=== PATIENT | female | born 1985 | race Caucasian/White ===

== ENCOUNTER → 2020-08-24 | Outpatient (CLI) | payer OTHER | END | disposition home or self-care (01) | LOC: LAB SHORT 13:00 → LAB 13:00 | DX: N20.0 Calculus of kidney (principal); R10.9 Unspecified abdominal pain | CPT/HCPCS: 87077; 87086; 87186 ==

== ENCOUNTER 2022-06-15 20:16 | Emergency (ER) | payer OTHER ==
[~2022-06-15] VITALS: Ht 172.7 cm; Wt 85.7 kg
== END 2022-06-15 22:45 | disposition home or self-care (01) ==
LOC: ER 20:16
DX: S61.314A Laceration without foreign body of right ring finger with damage to nail, initial encounter (principal); W31.89XA Contact with other specified machinery, initial encounter
CPT/HCPCS: 90714

== ENCOUNTER → 2022-06-19 | Outpatient (CLI) | payer OTHER | LOC: LAB SHORT 11:30 → LAB 11:30 | DX: R30.0 Dysuria (principal) | CPT/HCPCS: 87086 ==

== ENCOUNTER → 2023-02-12 | Outpatient (CLI) | payer OTHER | LOC: LAB SHORT 13:35 → LAB 13:35 | DX: R30.0 Dysuria (principal) | CPT/HCPCS: 87077; 87086; 87186 ==

== ENCOUNTER → 2023-08-06 | Outpatient (CLI) | payer OTHER ==
[2023-08-21 07:08] LABS: HPV GENOTYPE 16 BY PCR Negative; HPV GENOTYPE 18 BY PCR Negative; HPV SOURCE Cervical; HPV, OTHER HIGH RISK BY PCR Negative
== END ==
LOC: LAB SHORT 16:55 → LAB 16:55
PROVIDERS: Student in an Organized Health Care Education/Training Program
DX: Z12.4 Encounter for screening for malignant neoplasm of cervix (principal)
CPT/HCPCS: 87624; 88142

== ENCOUNTER → 2024-02-12 | Outpatient (CLI) | payer OTHER ==
[2024-02-12 13:15] LABS: Source, Urine Voided
[2024-02-12 14:43] LABS: Appearance, Urine Hazy (Clear); Bilirubin, Urine Neg (Neg); Blood, Urine 1+ (Neg); Color, Urine Yellow (P-Yellow); Glucose Qualitative, Urine Neg (Neg); Ketones, Urine Neg (Neg); Leukocyte Esterase, Urine 3+ (Neg); Nitrite, Urine Neg (Neg); Protein, Urine 1+ (Neg); Urobilinogen, Urine NORM (Normal)
[2024-02-12 15:01] LABS: Bacteria Few /hpf; Squamous Epithelial Cells Few /hpf (Few); White Blood Cells, Urine 25-50 /hpf (0-5)
== END | disposition home or self-care (01) ==
LOC: LAB 13:04 → LAB SHORT 13:04
PROVIDERS: Obstetrics & Gynecology
DX: R30.0 Dysuria (principal)
CPT/HCPCS: 81001; 87077; 87086; 87186

== ENCOUNTER → 2024-04-06 | Outpatient (CLI) | payer OTHER | END | disposition home or self-care (01) | LOC: LAB 11:55 → LAB SHORT 11:55 | DX: O09.512 Supervision of elderly primigravida, second trimester (principal) | CPT/HCPCS: 87081; 87150 ==

== ENCOUNTER 2024-05-05 06:58 | Inpatient (IN) | payer OTHER ==
[~2024-05-05] VITALS: Ht 172.7 cm; Wt 117.7 kg
[2024-05-05] VITALS (36 sets, daily range): BP systolic 105–196; BP diastolic 47–89
[2024-05-05] MEDS ORDERED: Lactated Ringer's 1,000 ML IV SCH ×2 (07:35→16:30)
[2024-05-05] MEDS ORDERED: ePHEDrine Sulfate 50 MG/ML 1ML Injection XX PRN (07:35)
[2024-05-05] MEDS ORDERED: OXYTOCIN/RINGER'S LACTATE 500 ML IV SCH ×3 (07:35→19:05)
[2024-05-05] MEDS ORDERED: FentaNYL 2mcg/ml-Bup 0.1% Epd 250 ML EPI PRN (07:35)
[2024-05-05] MEDS ORDERED: Acetaminophen 500 MG Tab PO PRN (07:40)
[2024-05-05] MEDS ORDERED: Carboprost Tromethamine 250 MCG/ML 1ML Amp IM PRN ×2 (07:40→18:55)
[2024-05-05] MEDS ORDERED: Calcium Carbonate 500 MG Tab Chew PO PRN (07:40)
[2024-05-05] MEDS ORDERED: Ondansetron HCl 2 MG / ML 2ML Vial IV PRN ×4 (07:40→19:00)
[2024-05-05] MEDS ORDERED: Misoprostol 200 MCG Tab PR PRN ×2 (07:40→19:00)
[2024-05-05] MEDS ORDERED: OXYTOCIN/RINGER'S LACTATE 500 ML IV PRN (07:40)
[2024-05-05] MEDS ORDERED: Oxytocin 10 Unit / ML Vial IM PRN (07:40)
[2024-05-05] MEDS ORDERED: Misoprostol 200 MCG Tab BC PRN (07:40)
[2024-05-05] MEDS ORDERED: Methylergonovine Maleate 0.2MG / ML 1ML Amp IM PRN ×2 (07:40→18:55)
[2024-05-05] MEDS ORDERED: Lactated Ringer's 1,000 ML IV PRN ×2 (07:40)
[2024-05-05] MEDS ORDERED: Tranexamic Acid 100 ML IV SCH ×2 (07:50→19:10)
[2024-05-05] MEDS ORDERED: Penicillin G Potassium 5,000,000 UNITS in NS 250 ML IV ONE (07:50)
[2024-05-05 08:21] LABS: BASOPHILS ABSOLUTE AUTO 0.03 K/mm3 (0.00-0.23); BASOPHILS PERCENT AUTO 0 % (0-2); EOSINOPHILS ABSOLUTE AUTO 0.09 K/mm3 (0.00-0.68); EOSINOPHILS PERCENT AUTO 1 % (0-6); Hematocrit 36.6 % (33.0-51.0); Hemoglobin 12.4 g/dL (11.5-16.0); IMMATURE GRAN ABSOLUTE AUTO 0.06 K/mm3 (0.00-0.10); IMMATURE GRAN PERCENT AUTO 1 % (0-1); LYMPHOCYTES ABSOLUTE AUTO 1.68 K/mm3 (0.84-5.20); LYMPHOCYTES PERCENT AUTO 18 % (21-46); MONOCYTES ABSOLUTE AUTO 0.92 K/mm3 (0.16-1.47); MONOCYTES PERCENT AUTO 10 % (4-13); Mean Corpuscular HGB 30.3 pg (26.0-34.0); Mean Corpuscular HGB Conc 33.9 g/dL (31.5-36.5); Mean Corpuscular Volume 90 fL (80-100); NEUTROPHILS ABSOLUTE AUTO 6.44 K/mm3 (1.96-9.15); NEUTROPHILS PERCENT AUTO 70 % (41-73); Platelet Count 223 K/mm3 (150-400); RDW Coefficient Variation 13.7 % (11.7-14.2); RDW Standard Deviation 44.5 fL (35.1-46.3); Red Blood Cell Count 4.09 M/mm3 (3.80-5.20); White Blood Cell Count 9.22 K/mm3 (4.00-11.30)
[2024-05-05] MEDS ORDERED: OMEP20ER PO (08:47)
[2024-05-05] MEDS ORDERED: CALCIUM 500-VI1 EAC6 PO (08:48)
[2024-05-05] MEDS ORDERED: PRENATAL TABLE1 EAC2 PO (08:48)
[2024-05-05] MEDS ORDERED: ACETAMINOPHEN500 MG PO (08:49)
[2024-05-05] MEDS ORDERED: Penicillin G Potassium 2,500,000 UNITS in Dextrose 5% 100 ML IV SCH (12:00)
[2024-05-05] MEDS ORDERED: Insulin Human Lispro 100 Units/ML 3ML Syringe SC SCH (12:30)
[2024-05-05] MEDS ORDERED: DiphenhydrAMINE HCl 50 MG/ML 1ML Vial IV PRN (14:15)
[2024-05-05] MEDS ORDERED: ePHEDrine Sulfate 50 MG/ML 1ML Injection IV PRN (14:15)
[2024-05-05] MEDS ORDERED: Naloxone HCl 0.4MG / ML 1ML Vial IV PRN (14:20)
[2024-05-05] MEDS ORDERED: CeFAZolin Sodium 2,000 MG in NS 100 ML IV SCH (16:30)
[2024-05-05] MEDS ORDERED: Metoclopramide HCl 5MG / ML 2ML Vial ONE (16:52)
[2024-05-05] MEDS ORDERED: Citric Acid/Sodium Citrate 30 ML BTL ONE (16:52)
[2024-05-05] MEDS ORDERED: Citric Acid/Sodium Citrate 30 ML BTL PO ONE (16:55)
[2024-05-05] MEDS ORDERED: Metoclopramide HCl 5MG / ML 2ML Vial IV ONE (16:55)
[2024-05-05] MEDS ORDERED: ePHEDrine Sulfate 50 MG/ML 1ML Injection ONE (17:13)
[2024-05-05] MEDS ORDERED: Oxytocin 10 Unit / ML Vial ONE ×2 (17:13)
[2024-05-05] MEDS ORDERED: Azithromycin 500 MG in NS 250 ML IV SCH ×2 (17:20→17:30)
[2024-05-05] MEDS ORDERED: Bupivacaine 0.5% HCl 5 MG/ML 30MLVIAL ONE (17:21)
--- NOTE | 2024-05-05 17:38 | NUR ---
05/05/24 1737 Leonie Elliott S P C/S OF BABY GIRL AT 1727. AP 9/8. WT 7-6. CORD BLOOD COLLECTED AND SENT WITH URVASHI BAILEY. CORD GASES COLLECTED AND SENT WITH RT ROSA ISELA.
[2024-05-05 17:44] LABS: PCO2 Cord - Arterial 57.8 mmHg (40-50); PO2 Cord - Arterial < 14.0 mmHg (16-20); pH Cord - Arterial 7.29 (7.28-7.35)
[2024-05-05 17:46] LABS: PCO2 Cord - Venous 48.8 mmHg (40-50); PO2 Cord - Venous 17.4 mmHg (28-32); pH Umbilical Cord - Venous 7.35 (7.26-7.35)
[2024-05-05] MEDS ORDERED: FentaNYL Citrate 50 MCG/ML 2 ML Injection IV PRN ×2 (17:55)
[2024-05-05] MEDS ORDERED: HYDROmorphone HCl/Pf 1MG SYR IV PRN ×2 (17:55→19:00)
[2024-05-05] MEDS ORDERED: Morphine Sulfate 4 MG/1 ML Injection IV PRN (18:00)
[2024-05-05] MEDS ORDERED: DiphenhydrAMINE HCL 25 MG Cap PO PRN (18:50)
[2024-05-05] MEDS ORDERED: Magnesium Hydroxide Conc 10 ML UDC PO PRN (18:55)
[2024-05-05] MEDS ORDERED: Simethicone 80 MG Chew PO PRN (18:55)
[2024-05-05] MEDS ORDERED: Promethazine HCl 25 MG Tab PO PRN (19:00)
[2024-05-05] MEDS ORDERED: Lanolin Cream TOP PRN (19:00)
[2024-05-05] MEDS ORDERED: Ketorolac Tromethamine 30mg Vial IV SCH (19:00)
[2024-05-05] MEDS ORDERED: OxyCODONE HCL 5 MG TAB PO PRN ×2 (19:05)
[2024-05-06] MEDS ORDERED: Acetaminophen 500 MG Tab PO SCH
[2024-05-06] MEDS ORDERED: Ibuprofen 400 MG Tab PO SCH
[2024-05-06 03:42] VITALS: BP 113/62
[2024-05-06 07:34] VITALS: BP 128/64
[2024-05-06] MEDS ORDERED: Polyethylene Glycol 3350 17 gm PO SCH (09:00)
[2024-05-06] MEDS ORDERED: Prenatal Vit/FE Fumarate/FA 1 Tab PO SCH (09:00)
[2024-05-06 09:12] LABS: BASOPHILS ABSOLUTE AUTO 0.03 K/mm3 (0.00-0.23); BASOPHILS PERCENT AUTO 0 % (0-2); EOSINOPHILS ABSOLUTE AUTO 0.08 K/mm3 (0.00-0.68); EOSINOPHILS PERCENT AUTO 1 % (0-6); Hematocrit 32.9 % (33.0-51.0); Hemoglobin 11.1 g/dL (11.5-16.0); IMMATURE GRAN ABSOLUTE AUTO 0.07 K/mm3 (0.00-0.10); IMMATURE GRAN PERCENT AUTO 1 % (0-1); LYMPHOCYTES ABSOLUTE AUTO 1.91 K/mm3 (0.84-5.20); LYMPHOCYTES PERCENT AUTO 16 % (21-46); MONOCYTES ABSOLUTE AUTO 0.94 K/mm3 (0.16-1.47); MONOCYTES PERCENT AUTO 8 % (4-13); Mean Corpuscular HGB 30.2 pg (26.0-34.0); Mean Corpuscular HGB Conc 33.7 g/dL (31.5-36.5); Mean Corpuscular Volume 90 fL (80-100); Mean Platelet Volume 10.6 fL (9.1-12.4); NEUTROPHILS PERCENT AUTO 76 % (41-73); Platelet Count 204 K/mm3 (150-400); RDW Coefficient Variation 13.6 % (11.7-14.2); RDW Standard Deviation 44.8 fL (35.1-46.3); Red Blood Cell Count 3.67 M/mm3 (3.80-5.20); White Blood Cell Count 12.33 K/mm3 (4.00-11.30)
[2024-05-06 12:45] VITALS: BP 116/60
[2024-05-06] MEDS ORDERED: Ketorolac Tromethamine 30mg Vial IV PRN (14:30)
[2024-05-06 15:51] VITALS: BP 128/86
[2024-05-06 20:14] VITALS: BP 124/60
[2024-05-07 00:31] VITALS: BP 121/76
[2024-05-07 02:10] VITALS: BP 113/55
[2024-05-07 05:05] VITALS: BP 115/58
[2024-05-07 07:34] VITALS: BP 132/66
[2024-05-07 14:34] VITALS: BP 136/65
--- NOTE | 2024-05-07 14:59 | NUR ---
agree with above assessment madison adamsc
== END 2024-05-07 14:45 | disposition home or self-care (01) | DRG 788 ==
LOC: OBS 06:58 → BC 07:08 → OBS 07:26 → BC 07:27
PROVIDERS: ADMIT Obstetrics & Gynecology
PROC: 10H07YZ Insertion of Other Device into Products of Conception, Via Natural or Artificial Opening (ICD-10-PCS; 2024-05-05)
PROC: 10D00Z1 Extraction of Products of Conception, Low, Open Approach (ICD-10-PCS; principal; 2024-05-05 20:30)
DX: O24.425 Gestational diabetes mellitus in childbirth, controlled by oral hypoglycemic drugs (principal); Z3A.39 39 weeks gestation of pregnancy; Z37.0 Single live birth; Z98.84 Bariatric surgery status; O99.214 Obesity complicating childbirth; O99.824 Streptococcus B carrier state complicating childbirth; O77.0 Labor and delivery complicated by meconium in amniotic fluid; Z90.89 Acquired absence of other organs; Z90.49 Acquired absence of other specified parts of digestive tract; Z98.890 Other specified postprocedural states; Z91.011 Allergy to milk products; Z91.018 Allergy to other foods; Z79.899 Other long term (current) drug therapy; Z79.84 Long term (current) use of oral hypoglycemic drugs
CPT/HCPCS: 36415; 82803; 82947; 85025; 86850; 86900; 86901; A9270; J0690; J1885; J2540; J2590; J2765; J7050; J7120

== ENCOUNTER → 2024-11-10 | Outpatient (CLI) | payer OTHER ==
[~2024-11-10] MED LIST: ACETAMINOPHEN500 MG PO; CALCIUM 500-VI1 EAC6 PO; OMEP20ER PO; PRENATAL TABLE1 EAC2 PO
[2024-11-10 10:43] LABS: Source, Urine Voided
[2024-11-10 12:42] LABS: Bacteria Many /hpf; Red Blood Cells, Urine 0-2 /hpf (0-2); Squamous Epithelial Cells Many /hpf (Few)
== END ==
LOC: LAB SHORT 08:05 → LAB 08:05
PROVIDERS: Obstetrics & Gynecology
DX: Z34.81 Encounter for supervision of other normal pregnancy, first trimester (principal)
CPT/HCPCS: 81015; 87086

== ENCOUNTER → 2025-02-02 | Outpatient (CLI) | payer OTHER ==
[2025-02-02 20:08] LABS: Bacterial Vaginosis PCR Negative (NEGATIVE); Candida Group, PCR NOT DETECTED (NOT DETECT); Candida glabrata-krusei, PCR NOT DETECTED (NOT DETECT)
== END | disposition home or self-care (01) ==
LOC: LAB SHORT 18:20 → LAB 18:20
PROVIDERS: Obstetrics & Gynecology
DX: N76.0 Acute vaginitis (principal)
CPT/HCPCS: 81515

== ENCOUNTER → 2025-05-23 | Outpatient (CLI) | payer OTHER | LOC: LAB SHORT 13:45 → LAB 13:45 | DX: O09.529 Supervision of elderly multigravida, unspecified trimester (principal) | CPT/HCPCS: 87081; 87150 ==

== ENCOUNTER 2025-06-13 08:27 | Inpatient (IN) | payer OTHER ==
[2025-06-13] VITALS (15 sets, daily range): BP systolic 104–139; BP diastolic 56–87
[~2025-06-13] VITALS: Ht 172.7 cm; Wt 125.0 kg
[2025-06-13] MEDS ORDERED: Metoclopramide HCl 5MG / ML 2ML Vial IV ONE (09:10)
[2025-06-13] MEDS ORDERED: Citric Acid/Sodium Citrate 30 ML BTL PO SCH (09:10)
[2025-06-13] MEDS ORDERED: CeFAZolin Sodium 3,000 MG in NS 100 ML IV SCH (09:10)
[2025-06-13] MEDS ORDERED: Celexa20 MG PO (09:15)
[2025-06-13] MEDS ORDERED: METF500 PO (09:16)
[2025-06-13] MEDS ORDERED: NOVOLIN N100 UNIT/2 (09:17)
[2025-06-13] MEDS ORDERED: OMEP20ER PO (09:18)
[2025-06-13 09:22] LABS: BASOPHILS ABSOLUTE AUTO 0.02 K/mm3 (0.00-0.23); BASOPHILS PERCENT AUTO 0 % (0-2); EOSINOPHILS ABSOLUTE AUTO 0.06 K/mm3 (0.00-0.68); EOSINOPHILS PERCENT AUTO 1 % (0-6); Hematocrit 37.2 % (33.0-51.0); Hemoglobin 12.8 g/dL (11.5-16.0); IMMATURE GRAN ABSOLUTE AUTO 0.06 K/mm3 (0.00-0.10); IMMATURE GRAN PERCENT AUTO 1 % (0-1); LYMPHOCYTES ABSOLUTE AUTO 1.62 K/mm3 (0.84-5.20); LYMPHOCYTES PERCENT AUTO 21 % (21-46); MONOCYTES ABSOLUTE AUTO 0.68 K/mm3 (0.16-1.47); MONOCYTES PERCENT AUTO 9 % (4-13); Mean Corpuscular HGB Conc 34.4 g/dL (31.5-36.5); Mean Corpuscular Volume 90 fL (80-100); NEUTROPHILS ABSOLUTE AUTO 5.42 K/mm3 (1.96-9.15); NEUTROPHILS PERCENT AUTO 69 % (41-73); NRBC ABSOLUTE 0.00 K/mm3 (0.00-0.02); NRBC Auto 0.0 /100 WBC (0.0-0.2); Platelet Count 199 K/mm3 (150-400); RDW Coefficient Variation 15.9 % (11.7-14.2); RDW Standard Deviation 51.8 fL (35.1-46.3)
[2025-06-13] MEDS ORDERED: Ondansetron HCl 2 MG / ML 2ML Vial ONE (10:24)
[2025-06-13] MEDS ORDERED: Phenylephrine HCl 100 MCG/ML-NS 10MLSYR (1MG/10ML) ONE ×2 (10:24→11:28)
[2025-06-13] MEDS ORDERED: Oxytocin 10 Unit / ML Vial ONE (11:20)
[2025-06-13] MEDS ORDERED: HYDROmorphone HCl/Pf 1MG SYR IV PRN ×2 (11:20)
[2025-06-13] MEDS ORDERED: Ondansetron HCl 2 MG / ML 2ML Vial IV PRN ×2 (11:20→18:00)
[2025-06-13] MEDS ORDERED: Albuterol 2.5 MG/3 ML VIAL INH PRN (11:20)
[2025-06-13] MEDS ORDERED: Labetalol HCL 5 MG/ML 4ML Injection (Single Dose) IV PRN (11:20)
[2025-06-13] MEDS ORDERED: FentaNYL Citrate 50 MCG/ML 2 ML Injection IV PRN ×2 (11:25)
[2025-06-13 11:51] LABS: PCO2 Cord - Arterial 54.7 mmHg (40-50); PO2 Cord - Arterial 15.1 mmHg (16-20); pH Cord - Arterial 7.27 (7.28-7.35)
[2025-06-13 11:53] LABS: PCO2 Cord - Venous 41.7 mmHg (40-50); PO2 Cord - Venous 24.0 mmHg (28-32); pH Umbilical Cord - Venous 7.38 (7.26-7.35)
--- NOTE | 2025-06-13 12:21 | NUR ---
06/13/25 1221 HAYDEN BOWEN FHT DOPPLERED DURING MARIN INSERTION IN 140S. LIGHT MEC FLUID VISUALIZED ON UNDERPAD. VIABLE BABY GIRL BORN AT 1133, APGARS 7/9, MEC FLUID, 3 VESSEL CORD. PLACENTA DELIVERED INTACT. CORD GASSES GIVEN TO RITA FINN, RT. CORD BLOOD GIVEN TO REUBEN HOUSER RN.
[2025-06-13] MEDS ORDERED: Ketorolac Tromethamine 30mg Vial ONE (12:23)
[2025-06-13] MEDS ORDERED: Ketorolac Tromethamine 30mg Vial IV PRN (13:25)
[2025-06-13] MEDS ORDERED: Rho(D) Immune Globulin 300 MCG / SYR IM ONE (18:00)
[2025-06-14 06:12] VITALS: BP 128/66
[2025-06-14 06:48] LABS: BASOPHILS ABSOLUTE AUTO 0.04 K/mm3 (0.00-0.23); BASOPHILS PERCENT AUTO 0 % (0-2); EOSINOPHILS ABSOLUTE AUTO 0.07 K/mm3 (0.00-0.68); EOSINOPHILS PERCENT AUTO 1 % (0-6); Hematocrit 34.5 % (33.0-51.0); Hemoglobin 11.4 g/dL (11.5-16.0); IMMATURE GRAN ABSOLUTE AUTO 0.05 K/mm3 (0.00-0.10); IMMATURE GRAN PERCENT AUTO 1 % (0-1); LYMPHOCYTES ABSOLUTE AUTO 1.53 K/mm3 (0.84-5.20); LYMPHOCYTES PERCENT AUTO 15 % (21-46); MONOCYTES ABSOLUTE AUTO 0.74 K/mm3 (0.16-1.47); MONOCYTES PERCENT AUTO 7 % (4-13); Mean Corpuscular HGB Conc 33.0 g/dL (31.5-36.5); Mean Corpuscular Volume 91 fL (80-100); NEUTROPHILS ABSOLUTE AUTO 7.59 K/mm3 (1.96-9.15); NEUTROPHILS PERCENT AUTO 76 % (41-73); NRBC ABSOLUTE 0.00 K/mm3 (0.00-0.02); NRBC Auto 0.0 /100 WBC (0.0-0.2); Platelet Count 160 K/mm3 (150-400); RDW Coefficient Variation 16.2 % (11.7-14.2); RDW Standard Deviation 54.1 fL (35.1-46.3)
[2025-06-14 08:49] VITALS: BP 133/60
[2025-06-14] MEDS ORDERED: Polyethylene Glycol 3350 17 gm PO SCH (09:00)
[2025-06-14 17:16] VITALS: BP 148/70
[2025-06-14 19:36] VITALS: BP 131/68
[2025-06-15] VITALS (8 sets, daily range): BP systolic 118–155; BP diastolic 65–94
--- NOTE | 2025-06-15 06:43 | NUR ---
NOTED RED/RASH AROUND AQUACEL BANDAGE COVERING INCISION. GAVE BENADRYL AND EDUCATED PATIENT TO NOTIFY STAFF IF RASH WORSENS.
[2025-06-15 09:26] LABS: BASOPHILS ABSOLUTE AUTO 0.03 K/mm3 (0.00-0.23); BASOPHILS PERCENT AUTO 0 % (0-2); EOSINOPHILS ABSOLUTE AUTO 0.24 K/mm3 (0.00-0.68); EOSINOPHILS PERCENT AUTO 3 % (0-6); Hematocrit 35.3 % (33.0-51.0); Hemoglobin 11.5 g/dL (11.5-16.0); IMMATURE GRAN ABSOLUTE AUTO 0.05 K/mm3 (0.00-0.10); IMMATURE GRAN PERCENT AUTO 1 % (0-1); LYMPHOCYTES ABSOLUTE AUTO 1.50 K/mm3 (0.84-5.20); LYMPHOCYTES PERCENT AUTO 20 % (21-46); MONOCYTES ABSOLUTE AUTO 0.48 K/mm3 (0.16-1.47); MONOCYTES PERCENT AUTO 7 % (4-13); Mean Corpuscular HGB Conc 32.6 g/dL (31.5-36.5); Mean Corpuscular Volume 92 fL (80-100); NEUTROPHILS ABSOLUTE AUTO 5.13 K/mm3 (1.96-9.15); NEUTROPHILS PERCENT AUTO 69 % (41-73); NRBC ABSOLUTE 0.00 K/mm3 (0.00-0.02); NRBC Auto 0.0 /100 WBC (0.0-0.2); Platelet Count 166 K/mm3 (150-400); RDW Coefficient Variation 16.6 % (11.7-14.2); RDW Standard Deviation 55.3 fL (35.1-46.3)
[2025-06-15 10:04] LABS: Alanine Aminotransfer (ALT/SGP 15.0 U/L (12-78); Albumin, Blood 2.2 g/dL (3.4-5.0); Albumin/Globulin Ratio 0.6 (0.8-1.8); Anion Gap 7.0 mmol/L (3-11); Aspartate Aminotrans (AST/SGOT 17.0 U/L (12-37); Bilirubin, Total 0.3 mg/dL (0.1-1.0); Blood Urea Nitrogen 7.0 mg/dL (8-24); CO2, Blood 26.0 mmol/L (21-32); Calcium, Blood 8.3 mg/dL (8.5-10.1); Chloride, Blood 108.0 mmol/L (98-108); Creatinine, Blood 0.55 mg/dL (0.40-1.00); Globulin, Blood 3.4 g/dL (2.2-4.0); Glucose, Blood 153.0 mg/dL (70-99); Potassium, Blood 3.9 mmol/L (3.5-5.5); Sodium, Blood 137.0 mmol/L (136-145); Total Protein, Blood 5.6 g/dL (6.4-8.2)
[2025-06-15] MEDS ORDERED: IBU800 M1 PO (10:12)
[2025-06-15] MEDS ORDERED: OXAYDO5 M1 (10:13)
--- NOTE | 2025-06-15 12:30 | NUR ---
Pt declines additional instructions by RN, reports had teaching done yesterday. No acute changes t/o shift, ID bands matched w/nb and verification form. Pt d/c'd home to care of .
== END 2025-06-15 12:30 | disposition home or self-care (01) | DRG 788 ==
LOC: BC 08:34
PROVIDERS: ADMIT Obstetrics & Gynecology
PROC: 3E03329 Introduction of Other Anti-infective into Peripheral Vein, Percutaneous Approach (ICD-10-PCS; 2025-06-13)
PROC: 10D00Z1 Extraction of Products of Conception, Low, Open Approach (ICD-10-PCS; principal; 2025-06-13 10:30)
DX: O34.211 Maternal care for low transverse scar from previous cesarean delivery (principal); O99.214 Obesity complicating childbirth; O99.02 Anemia complicating childbirth; D50.9 Iron deficiency anemia, unspecified; O24.429 Gestational diabetes mellitus in childbirth, unspecified control; O99.824 Streptococcus B carrier state complicating childbirth; O99.844 Bariatric surgery status complicating childbirth; O32.1XX0 Maternal care for breech presentation, not applicable or unspecified; Z3A.39 39 weeks gestation of pregnancy; Z37.0 Single live birth
CPT/HCPCS: 36415; 59414; 80053; 82803; 82947; 85025; 86850; 86900; 86901; 86923; A9270; J0456; J1885; J2371; J2405; J2590; J2765; J7050; J7120